=== PATIENT | male | born 1995 | race Caucasian/White ===

== ENCOUNTER 2020-12-05 16:17 | Emergency (ER) | payer SELFPAY ==
[~2020-12-05] VITALS: Ht 172.7 cm; Wt 61.1 kg
--- NOTE | 2020-12-05 16:52 | REP ---
INDICATION: pain, injury 3 weeks ago. COMPARISON: Comparison radiographs of the left shoulder are from April 06, 2013.. TECHNIQUE: Three views of the left shoulder are provided. FINDINGS: The left glenohumeral and acromioclavicular joints are normally aligned. Periarticular soft tissues are unremarkable. No fracture or subluxation is seen. The visualized left ribcage is intact. IMPRESSION: Negative left shoulder radiographs. <Electronically signed by Blane Ma > 12/05/20 [id number]
[2020-12-05] MEDS ORDERED: KETOROLAC 60MG 2ML VIAL IM ONE (17:20)
[2020-12-05 17:38] VITALS: BP 138/88
== END 2020-12-05 17:40 | disposition home or self-care (01) ==
LOC: M ED 16:17 → EDBD 16:17 → M ED 17:40
DX: M75.22 Bicipital tendinitis, left shoulder (principal); F17.200 Nicotine dependence, unspecified, uncomplicated
CPT/HCPCS: 73030; 96372; 99284; J1885